=== PATIENT | male | born 1970 | race Caucasian/White ===

== ENCOUNTER 2020-06-01 01:28 | Emergency (ER) | payer MEDICAID, SELFPAY ==
[2020-06-01 01:29] VITALS: BP 172/74; PULSE 76; RESP 18; TEMP 36; O2SAT 97; BMI 33.2
--- NOTE | 2020-06-01 01:38 | RAD_ITS ---
HISTORY: FELL DOWN STAIRS ON 05/20/20C/O PAIN TO RT GREAT TOE AND 1ST METATARSAL ADDITIONAL HISTORY: None provided. EXAMINATION/TECHNIQUE: XR Foot Min 3 Views Right Number of images including paperwork: 3 COMPARISON: None FINDINGS: BONES: Small intra-articular fracture noted along the base of the distal phalanx of the great on the oblique view. Lucency over the great toe proximal phalanx on the AP view without distinct cortical break is favored to be artifactual. Hammertoe deformities. JOINTS: No subluxation. Subtalar joint fusion with 2 screws. SOFT TISSUES: No distinct foreign body. Soft tissue swelling. RAD/Foot min 3 Views IMPRESSION: 1. Small fracture of the base of the distal phalanx of the great toe. 2. Lucency over the mid to distal aspect of the proximal phalanx of the great toe is favored to be artifactual rather than related to a nondisplaced fracture. at 0214 Reported and signed by: Victorina Schulte MD Electronically Signed: Victorina Schulte MD at 2:14 EST Tel , Service support ,
--- NOTE | 2020-06-01 01:43 | ED.VIS.INJ ---
History of Present Illness Chief Complaint: Lower Extremity Injury Informant: Patient Onset: Days - 12 days ago Mechanism/Context: Blunt Injury, Fall Quality of Pain: Dull, Aching, Throbbing Location: Medial right foot and great toe Current Severity: Mild Maximum Severity: Moderate Worsened by: Applying pressure Relieved by: Nothing Associated Symptoms: Negative for: Parasthesias, Weakness, Inability to ambulate, Loss of consciousness Length of loss of consciousness: Not applicable Narrative: Patient is a 50-year-old male who injured his right foot on . He states he was walking down steps. He slipped. He sustained injury to the medial distal right foot. He presents because of increased pain and swelling. He states the top of his foot was black and blue. He reports that the discoloration lateral aspect of the foot/ankle is darker. He did have prior surgery by physician in [place]. He denies history of diabetes or peripheral arterial disease. Prior similar symptoms: No Recent Illness/Hospitalization: No - Past Medical History (1) No significant past medical history Status: Acute Past Medical History - Allergies and Home Meds Allergies/Adverse Reactions: Allergies Penicillins Allergy (Verified 06/01/20 01:28) Other gabapentin Adverse Reaction (Verified 06/01/20 01:28) Other Primary Care Physician: Almas Santizo MD [Primary Care Provider] - Prior records reviewed: No Surgical History: noncontributory Lives: Alone Smoking Status: Former smoker Alcohol: Rare Drugs: None Review of Systems General: Denies: Chills, Fever Musculoskeletal: Reports: Swelling, Extremity Pain, - - There is no history of gout or pseudogout.. Denies: Myalgias, Arthralgias Skin: Reports: Rash. Denies: Abscess, Abrasions, Wounds Neurological: Denies: Weakness, Parasthesia, Numbness Hematologic: Denies: Easy bruising, Easy bleeding Physical Exam Vital Signs/Narrative: Vital Signs Temp Pulse Resp BP Pulse Ox 06/01/20 01:29 96.8 F L 76 18 172/74 H 97 Inital Vital Signs reviewed: Yes General: Well nourished, Well developed, Obese Head: Normocephalic, Atraumatic Eyes: Perrl, EOMI. Negative for: Pale conjunctiva Cardiovascular: Regular rate, Regular rhythm Respiratory: No distress Extremeties: There is swelling over the first metatarsal and phalanges of the right great toe. There is erythema without warmth, induration or lymphangitis. DP and PT pulse are palpable. Well-healed scar is noted anterior surface of the ankle/foot. Patient is able to wiggle his toes. There is no subungual hematoma noted. Skin: Normal color, No rash, Trauma Neurological: Alert, Oriented x3, Normal Strength, Normal Sensation. Negative for: Normal Gait Psychological: Normal affect, Normal Mood - Glascow Coma Scale Eye Opening: Spontaneous Motor: Obeys Commands Verbal: Oriented Coma Scale Total: 15 Diagnostic/Tx/Re-eval Chest X-Ray - ED: Read by ED Physician, - - Three-view x-ray of the foot reveals a nondisplaced intra-articular fracture of the proximal phalanx right great toe 06/01/20 01:38 Foot min 3 Views [RAD] Stat - Medical Decision Making X-ray of the foot was obtained to rule out fracture versus contusion versus ligamentous injury. Since there is a fracture he was placed in a postop shoe, prescription for pain medicine and referred to podiatry ED Disposition - Plan for ED Patient: Disposition: Home or Assisted Living Diagnosis: Closed fracture of proximal phalanx of right great toe Instructions: ED Fracture, Toe, Closed Prescriptions: Hydrocodone Bitart/Apap 5-325 [[place] 5MG-325MG] 1 tablet PO Q6H PRN PRN 3 Days #10 tablet PRN Reason: Pain Transmission Status: Sent to [id number] Referrals: Almas Santizo MD [Primary Care Provider] - Robe Massey DPM [STAFF PHYSICIAN] - 5-7 Days Additional Instructions: We are postop sure while awake. Apply ice 6-8 times a day
[2020-06-01] MEDS: HYDROcodone Bitartrate/Apap 5/325 Tablet PO (02:10)
== END 2020-06-01 02:16 | disposition home or self-care (01) ==
PROVIDERS: Emergency Provider Emergency Medicine; PCP Internal Medicine
DX: S92.414A Nondisplaced fracture of proximal phalanx of right great toe, initial encounter for closed fracture (principal); W01.0XXA Fall on same level from slipping, tripping and stumbling without subsequent striking against object, initial encounter; Y93.01 Activity, walking, marching and hiking; Y92.9 Unspecified place or not applicable; E66.9 Obesity, unspecified; Z87.891 Personal history of nicotine dependence
CPT/HCPCS: 73630; 99283

== ENCOUNTER 2021-12-06 22:52 | Emergency (ER) | payer MEDICAID, SELFPAY ==
[2021-12-06 22:53] VITALS: BP 160/121; PULSE 89; RESP 15; TEMP 36.3; O2SAT 98; BMI 32.5
--- NOTE | 2021-12-06 23:11 | CT_ITS ---
STUDY: CT ABDOMEN AND PELVIS WITH CONTRAST REASON FOR EXAM: Male, 51 years old. llq abdominal pain RADIATION DOSAGE (If Supplied By Facility): CTDIvol = ( 18.43 ) mGy, DLP = ( 1380.77 ) mGycm TECHNIQUE: Transaxial images were obtained from the dome of the diaphragm to the symphysis pubis without oral contrast. IV 100mL Isovue-300 was administered. Sagittal and coronal images were reconstructed. Individualized dose optimization techniques were used for this CT. COMPARISON: None. FINDINGS: The visualized lung bases are unremarkable. The visualized portions of the heart are within normal limits. Normal liver. Normal gallbladder and extrahepatic biliary system. Normal spleen. Normal pancreas. Normal bilateral adrenal glands. Normal right kidney. Normal left kidney. Nonobstructing 3 mm left upper pole nephrolith Normal visualized stomach. Normal small intestine. Normal colon. There are surgical clips in the region of the appendix consistent with a prior appendectomy. Normal abdominal aorta. Normal inferior vena cava. Normal retroperitoneum. Normal urinary bladder. Normal visualized prostate gland. Normal abdominal wall. Normal osseous structures. CT/Abdomen/Pelvis W IV Cont ONLY IMPRESSION: Normal enhanced CT of the abdomen and pelvis. Electronically Signed: Sinan Pena DO at 0:22 EDT ,
[2021-12-06] MEDS: 0.9% Normal Saline 1,000 ML 1000 ML IV (23:21)
[2021-12-06] MEDS: Metoclopramide 10 MG/2 ML Vial IV (23:22)
[2021-12-06] MEDS: Morphine 4 MG/ML Syringe IV (23:22)
[2021-12-06 23:42] LABS: Absolute Lymphocyte Count 1.16 X10^3/uL (0.83-4.51); Absolute Neutrophil Count 2.5 X10^3/uL (2.0-7.7); Basophil# 0.02 X10^3/uL; Basophil% 0.4 % (0-1); Hematocrit 45.5 % (40-54); Hemoglobin 16.5 g/dL (13.0-16.5); Lymphocyte # 1.16 X10^3/ul (0.83-4.51); Mean Corp Hgb Conc 36.3 g/dL (32-36); Mean Corpuscular Hgb 32.3 pg (27.0-32.0); Mean Platelet Vol. 9.9 fl (6.2-12.0); Monocyte# 0.76 X10^3/uL; NRBC Flagged by Analyzer 0 % (0-5); Neutrophil # 2.46 X10^3/uL (2.7-7.7); Platelet Count 159 K/mm3 (150-450); RBC Distribution Width SD 39.5 fl (35.1-43.9); Red Blood Count 5.11 M/mm3 (4.6-6.2); White Blood Count 4.5 K/mm3 (4.4-11.0)
[2021-12-06 23:48] LABS: AST(SGOT) 66 U/L (15-37); Alanine Aminotransfer ALT/SGPT 99 U/L (16-61); Alkaline Phosphatase 63 U/L (45-117); Anion Gap 8 (5-15); BUN 21 mg/dL (7-18); BUN/Creat Ratio 13.5 RATIO (10-20); Calcium,Total 9.5 mg/dL (8.5-10.1); Chloride 104 mmol/L (98-107); Creatinine, Serum 1.55 mg/dL (0.70-1.30); EST Glomerular Filtration Rate 51 mL/min (>60); Est Glom Filt Rate - Afr Amer 61 mL/min (>60); Estimated Creatinine Clearance 70.78 ml/min; Globulin 4.2 g/dL (2.2-4.2); Glucose 118 mg/dL (74-106); Lipase 189 U/L (73-393); Potassium 3.6 mmol/L (3.5-5.1); Protein, Total 8.2 g/dL (6.4-8.2); Sodium Level 136 mmol/L (136-145)
[2021-12-07 00:48] VITALS: BP 169/95; PULSE 74; RESP 18; O2SAT 97
--- NOTE | 2021-12-07 04:00 | EDS_ITS ---
HPI HPI - GI History of Present Illness Chief Complaint: Abd Pain Narrative Narrative: 51-year-old male presenting with nausea, vomiting, diarrhea as well as abdominal pain. This is been going on since Saturday. He was seen at another facility and had blood work and imaging done and his CAT scan was normal. His blood work was normal. He states he has been home and had Zofran but is still vomiting frequently. He is unable to hold down food and fluids. He continues to have diarrhea as well. He denies recent antibiotic use. No history of C. difficile. He denies any exotic food or travel. He has no sick contacts. Patient is on Xarelto for history of blood clots. He has not had any black or bloody stools. No hematemesis or coffee-ground emesis. [facility] Medical History COPD (chronic obstructive pulmonary disease) DVT (deep venous thrombosis) Myocardial infarct Pulmonary embolism Home Medications albuterol sulfate 90 mcg/actuation aerosol inhaler (Ventolin HFA) 1 - 2 puff inhalation Q4H PRN PRN Dyspnea 04/12/16 [History Last Taken 04/11/16] umeclidinium 62.5 mcg/actuation blister powder for inhalation (Incruse Ellipta) 62.5 mcg IH DAILY 04/12/16 [History Last Taken 04/11/16] rivaroxaban 10 mg tablet (Xarelto) 1 tab PO DAILY 12/06/21 [History Last Taken Unknown] famotidine 20 mg tablet (Pepcid) 20 mg PO BID #14 tabs 12/07/21 [Rx Last Taken Unknown] metoclopramide HCl 10 mg tablet (Reglan) 10 mg PO Q6H PRN nausea and vomiting #10 tabs 12/07/21 [Rx Last Taken Unknown] Allergy/AdvReac Type Severity Reaction Status Date / Time Penicillins Allergy Other Verified 12/06/21 22:56 gabapentin AdvReac Other Verified 12/06/21 22:56 Surgical History (Updated 12/06/21 @ 23:04 by Montserrat Oneill) History of appendectomy History of lobectomy of lung Social History Smoking Status: Former smoker ROS ROS ED Constitutional Constitutional ED: Denies chills or fever(s) ENT ENT ED: Denies rhinorrhea or sore throat Cardiovascular Cardiovascular: Denies palpitations or racing heartbeat Respiratory/Chest Respiratory/Chest: Denies cough or dyspnea Gastrointestinal Gastrointestinal: Reports abdominal pain, diarrhea and nausea Genitourinary Genitourinary ED: Denies dysuria or hematuria Musculoskeletal Musculoskeletal: Denies arthralgias Integumentary Denies abscess or Abrasions Neurologic Neurologic: Reports headache(s); Denies paresthesias Psychiatric Psychiatric: Denies anxiety or depression EXAM Physical Exam Const Vital Signs: 12/06/21 22:53 12/07/21 00:48 Temperature 97.3 F L Temperature Source Temporal Pulse Rate 89 74 Respiratory Rate 15 18 Blood Pressure 160/121 H 169/95 H Blood Pressure Mean 134 Pulse Ox 98 97 Oxygen Delivery Method Room Air Positive well nourished General Appearance ED: NAD HEENT Reports dry mucous membranes normocephalic and atraumatic Mouth ED: Yes dry mucous membranes Mouth: dry mucous membranes Eyes PERRL and EOMs intact bilaterally Resp normal respiratory effort and clear to auscultation bilaterally Auscultation: Negative for rales, rhonchi or wheezes Cardio regular rate and regular rhythm GI GI Narrative: Diffuse generalized tenderness. No peritoneal signs. Back/Spine no CVA tenderness Neuro CN's II-XII intact bilaterally Sensorium / Orientation: alert Motor Exam: strength 5/5 throughout Psych mental status grossly normal and thought process normal Skin General Skin Exam: Negative for jaundice MDM MDM MDM Narrative Medical decision making narrative: Patient complaining of continue nausea vomiting and diarrhea. IV was established and patient given IV fluids, morphine, Reglan since he states that the Zofran was not helping. On reevaluation his vomiting has improved. His CBC shows he has a white blood cell count of 4.5. Hemoglobin 16.5, platelets 159. Creatinine slightly elevated 1.55. Again he was given IV fluids. Electrolytes within normal limits. LFTs are slightly bumped with an AST of 66 and an ALT of 99. Bilirubin is normal. Lipase negative. I did a CT of the abdomen pelvis with IV contrast which does not show any acute process. Patient feeling much better after being medicated. Since the Zofran is not working I did send him home with Reglan. He was counseled that he does have an acute kidney injury but I do not think he needs to stay in the hospital. He was given a liter of fluids here and he is counseled to increase his fluid intake with small amounts frequently. He is counseled to keep his diet liquids tonight and he can advance tomorrow to bland foods. Patient given return precautions and counseled to follow-up with his PCP regarding his kidney function. Impression: 1. Nausea/vomiting 2. Diarrhea 3. Abdominal pain 4. ILANA Lab Data Attestation: I reviewed the patient's lab results. Labs: Laboratory Results - last 24 hr 12/06/21 12/06/21 23:23 23:23 WBC 4.5 RBC 5.11 Hgb 16.5 Hct 45.5 MCV 89.0 MCH 32.3 H MCHC 36.3 H RDW Std Deviation 39.5 RDW Coeff of Wes 12.0 Plt Count 159 MPV 9.9 Immature Gran % (Auto) 1.600 H Neut % (Auto) 55.0 Lymph % (Auto) 26.0 [place] % (Auto) 17.0 H Eos % (Auto) 0.0 Baso % (Auto) 0.4 Absolute Neuts (auto) 2.5 Absolute Lymphs (auto) 1.16 Nucleated RBC % 0 Sodium 136 Potassium 3.6 Chloride 104 Carbon Dioxide 24.0 Anion Gap 8 BUN 21 H Creatinine 1.55 H Estim Creat Clear Calc 70.78 Est GFR (MDRD) Af Amer 61 Est GFR (MDRD) Non-Af 51 L BUN/Creatinine Ratio 13.5 Glucose 118 H Calcium 9.5 Total Bilirubin 0.80 AST 66 H ALT 99 H Alkaline Phosphatase 63 Total Protein 8.2 Albumin 4.0 Globulin 4.2 Albumin/Globulin Ratio 1.0 Lipase 189 Radiography Diagnostic Testing: Clinical Impression(s) from Imaging Studies Abdomen/Pelvis CT 12/06/21 23:11 IMPRESSION: Normal enhanced CT of the abdomen and pelvis. Electronically Signed: Sinan Pena DO at 0:22 EDT , Discharge Plan Triage Chief Complaint: Abd Pain ED Provider: Masood Freeman Dx/Rx/DC Orders Instructions: ED Dehydration (Adult), ED Gastroenteritis, Viral (Adult) Prescriptions: New metoclopramide HCl [Reglan] 10 mg tablet 10 mg PO Q6H PRN (Reason: nausea and vomiting) Qty: 10 0RF famotidine [Pepcid] 20 mg tablet 20 mg PO BID Qty: 14 0RF No Action albuterol sulfate [Ventolin HFA] 1 INHALER inhaler 1 - 2 puff inhalation Q4H PRN PRN (Reason: Dyspnea) Label Comments: SOB umeclidinium [Incruse Ellipta] 62.5 MCG blister with device 62.5 mcg IH DAILY Label Comments: COPD Xarelto 10 mg tablet 1 tab PO DAILY Label Comments: TAKE 1 TABLET BY MOUTH ONCE DAILY Primary Care Provider: Keisha Cochran Referrals: Keisha Cochran MD [Primary Care Provider] - Disposition Disposition: Home, Self Care Discharge Date/Time: 12/07/21 01:01
== END 2021-12-07 01:01 | disposition home or self-care (01) ==
PROVIDERS: Emergency Provider Student in an Organized Health Care Education/Training Program; PCP Internal Medicine; Visit Provider Student in an Organized Health Care Education/Training Program
DX: R11.2 Nausea with vomiting, unspecified (principal); N17.9 Acute kidney failure, unspecified; J44.9 Chronic obstructive pulmonary disease, unspecified; Z87.891 Personal history of nicotine dependence; I25.2 Old myocardial infarction; Z86.711 Personal history of pulmonary embolism; Z86.718 Personal history of other venous thrombosis and embolism; Z79.899 Other long term (current) drug therapy; Z79.01 Long term (current) use of anticoagulants; R19.7 Diarrhea, unspecified; R10.9 Unspecified abdominal pain
CPT/HCPCS: 74177; 80053; 83690; 85025; 96361; 96374; 96375; 99283; J7030; Q9967; A4216